=== PATIENT | female | born 1945 | race Caucasian/White ===

== ENCOUNTER 2018-03-28 11:23 | Emergency (ER) | payer OTHER ==
[~2018-03-28] VITALS: Ht 157.4 cm; Wt 53.5 kg
[~2018-03-28 11:23] MED LIST: TORADOL10 MG PO; VICODIN 5/500 505 MG PO; ZITHROMAX Z PA250 MG PO
[2018-03-28] MEDS ORDERED: NORCO 10-325 T1 EACH PO (13:27)
== END 2018-03-28 13:48 | disposition home or self-care (01) ==
LOC: ED 11:23
DX: S92.001A Unspecified fracture of right calcaneus, initial encounter for closed fracture (principal); W10.9XXA Fall (on) (from) unspecified stairs and steps, initial encounter; Y93.89 Activity, other specified; Y92.89 Other specified places as the place of occurrence of the external cause; Y99.8 Other external cause status